=== PATIENT | female | born 1995 | race Hispanic/Latino ===

== ENCOUNTER 2016-12-20 06:46 | Emergency (ER) | payer OTHER ==
[2016-12-20] MEDS ORDERED: Sodium Chloride 0.9% 1,000 ML IV STA (07:54)
--- NOTE | 2016-12-20 07:55 | ED PDOC ---
HPI: Seizure Time Seen by Provider: 12/20/16 07:11 Chief Complaint (Nursing): Seizure Chief Complaint (Provider): Seizure History Per: Patient History/Exam Limitations: no limitations Recent Seizure Activity Began: Hours Ago: Number Of Seizures: One Quality Of Seizure: Generalized Precipitating Factor(s): Recent Alcohol Ingestion Additional Complaint(s): Hernando Ramirez is a 21 year old female with a history of generalized epilepsy that presents to the ED with a chief complaint of a seizure she experienced prior to arrival. Patient reports that she had three alcoholic drinks last night , but did not drink any water or eat any food during that time, which is why she believes she had her seizure, as she has experienced similar episodes in the past. She currently has an associated headache and diffuse myalgias. Of Note: Patient reports that she currently takes Zonisamide and Lamictal for her epilepsy. Neurologist: Dr. Eduardo Ramirez ([place]) Past Medical History Reviewed: Historical Data, Nursing Documentation, Vital Signs Vital Signs: Last Vital Signs Temp 99.3 F 12/20/16 06:59 Pulse 109 H 12/20/16 06:59 Resp 18 12/20/16 06:59 BP 112/72 12/20/16 06:59 Pulse Ox 100 12/20/16 08:03 - Medical History Other PMH: Generalized epilepsy - Family History Family History: States: Unknown Family Hx - Allergies Allergies/Adverse Reactions: Allergies Allergy/AdvReac Type Severity Reaction Status Date / Time No Known Allergies Allergy Verified 12/20/16 06:59 Review of Systems Constitutional: Positive for: Other (diffuse mylgias) Neurological: Positive for: Headache Physical Exam - Reviewed Nursing Documentation Reviewed: Yes Vital Signs Reviewed: Yes - Physical Exam Appears: Positive for: Non-toxic, No Acute Distress Head Exam: Positive for: ATRAUMATIC, NORMOCEPHALIC Skin: Positive for: Normal Color, Warm Eye Exam: Positive for: Normal appearance, EOMI, PERRL Neck: Positive for: Normal, Painless ROM Cardiovascular/Chest: Positive for: Regular Rate, Rhythm. Negative for: Murmur Respiratory: Positive for: Normal Breath Sounds. Negative for: Wheezing Extremity: Positive for: Normal ROM, Other (5/5 strength in all extremities). 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 Negative for: Motor/Sensory Deficits, Aphasia, Facial Droop - Laboratory Results Result Diagrams: 12/20/16 08:11 12/20/16 08:11 - ECG O2 Sat by Pulse Oximetry: 100 (RA) Pulse Ox Interpretation: Normal Medical Decision Making Medical Decision Making: Impression: Headache and Body Aches s/p seizure Plan: * Alcohol Serum * CMP * Urine Drug Screen * Urine dip * Urine * Pepcid 20 mg IV * Toradol 30 mg IV * NaCl 1000 mL at 1000 mLs/hr * Reevaluation Scribe Attestation: Documented by Mamta George, acting as a scribe for Viv Hensley MD. Provider Scribe Attestation: All medical record entries made by the Scribe were at my direction and personally dictated by me. I have reviewed the chart and agree that the record accurately reflects my personal performance of the history, physical exam, medical decision making, and the department course for this patient. I have also personally directed, reviewed, and agree with the discharge instructions and disposition. 10.15a - feeling better. labs significant only for elevated LFTs. Will d/c Disposition - Clinical Impression Clinical Impression: Alcohol ingestion, Seizure disorder, Elevated liver enzymes - Patient ED Disposition Is Patient to be Admitted: No Doctor Will See Patient In The: Office Counseled Patient/Family Regarding: Diagnosis, Need For Followup - Disposition Disposition: Routine/Home Disposition Time: 10:33 Condition: IMPROVED Instructions: Alcohol Use Disorder (ED), Alcoholic Hepatitis (ED), Epilepsy (ED ) Forms: [employer] (Croatian) - Pt Status Changed To: Hospital Disposition Of: Observation - POA Present On Arrival: None
[2016-12-20 08:46] LABS: BASO % 0.7 % (0.0-2.0); EOS # 0.1 K/uL (0.0-0.7); EOS % 2.9 % (0.0-4.0); LYMPH # 1.2 K/uL (1.0-4.3); LYMPH % 32.5 % (20.0-40.0); MEAN CELL VOLUME 91.6 fl (81.0-99.0); MEAN CORPUSCULAR HEMOGLOBIN 30.8 pg (27.0-31.0); MEAN CORPUSCULAR HGB CONC 33.6 g/dL (33.0-37.0); MONO # 0.5 K/uL (0.0-0.8); MONO % 11.8 % (0.0-10.0); NEUT % 52.1 % (50.0-75.0); NRBC % 0.2 % (0.0-0.0); RED CELL DISTRIBUTION WIDTH 14.7 % (11.5-14.5); WHITE BLOOD COUNT 3.8 K/uL (4.8-10.8)
[2016-12-20 08:51] LABS: ALB/GLOB RATIO 1.8 (1.0-2.1); ALCOHOL SERUM < 10 mg/dl (0-10); ALKALINE PHOSPHATASE 58 U/L (38-126); ALT/SGPT 58 U/L (9-52); AST/SGOT 59 U/L (14-36); BILIRUBIN,TOTAL 0.5 mg/dl (0.2-1.3); BLOOD UREA NITROGEN 15 mg/dl (7-17); CALCIUM 9.1 mg/dL (8.4-10.2); CARBON DIOXIDE 20 mmol/L (22-30); CHLORIDE 110 mmol/L (98-107); GFR AFRICAN-AMERICAN > 60; GLUCOSE,RANDOM 85 mg/dL (65-105); SODIUM 142 mmol/l (132-148); TOTAL PROTEIN 6.4 G/DL (6.3-8.2)
[2016-12-20 11:42] VITALS: BP 120/78; PULSE 78; RESP 19; TEMP 97; O2SAT 98
== END 2016-12-20 11:42 | disposition home or self-care (01) ==
LOC: H.ER 06:46
DX: M79.1 Myalgia (principal); G40.909 Epilepsy, unspecified, not intractable, without status epilepticus; F10.10 Alcohol abuse, uncomplicated; R74.8 Abnormal levels of other serum enzymes
CPT/HCPCS: 80053; 80320; 80324; 80345; 80346; 80349; 80353; 80358; 80361; 81025; 83992; 85025; 96374; 96375; 99283; J1885; J2405; J7040